=== PATIENT | male | born 1940 | race Caucasian/White ===

== ENCOUNTER 2023-04-10 08:21 | Outpatient (RCR) | payer OTHER, SELFPAY ==
[2023-04-10 08:50] VITALS: BP 150/72
[2023-04-10] MEDS: TYLENOL 650 MG PO (10:27)
[2023-04-10 10:38] VITALS: BP 150/72
[2023-04-10 10:55] VITALS: BP 122/63
[2023-04-10 12:36] VITALS: BP 125/62
== END 2023-05-03 23:59 | disposition home or self-care (01) ==
LOC: OID 08:21
PROVIDERS: ATTENDING PHYSICIAN Internal Medicine Hematology & Oncology
DX: D46.B Refractory cytopenia with multilineage dysplasia and ring sideroblasts (principal)
CPT/HCPCS: 36430; 86850; 86900; 86901; 86920; P9016

== ENCOUNTER 2023-05-22 11:41 | Outpatient (RCR) | payer OTHER, SELFPAY ==
[2023-05-22 12:05] VITALS: BP 161/68
[2023-05-22 12:22] VITALS: BP 110/63
[2023-05-22 12:27] VITALS: BP 161/68
[2023-05-22 14:26] VITALS: BP 124/59
== END 2023-06-01 23:59 | disposition home or self-care (01) ==
LOC: OID 11:41
PROVIDERS: ATTENDING PHYSICIAN Internal Medicine Hematology & Oncology
DX: D46.B Refractory cytopenia with multilineage dysplasia and ring sideroblasts (principal)
CPT/HCPCS: 36430; 86850; 86900; 86901; 86920; P9016

== ENCOUNTER → 2023-06-13 09:23 | Outpatient (REF) | payer OTHER, SELFPAY ==
[2023-06-13 09:28] LABS: % Basophils 1.2 % (0-2); % Eosinophils 4.6 % (0-6); % Immature Granulocytes 0.2 % (0-0.5); % Lymphocytes 16.2 % (20.5-51.1); % Monocytes 8.4 % (1.7-9.3); % Neutrophils 69.4 % (42.2-75.2); Absolute Basophils 0.1 10^3/uL (0-0.2); Absolute Eosinophils 0.2 10^3/uL (0-0.7); Absolute Lymphocytes 0.8 10^3/uL (1.2-3.4); Absolute Monocytes 0.4 10^3/uL (0.1-0.6); Absolute Neutrophils 3.5 10^3/uL (1.4-6.5); Hematocrit 25.7 % (39.0-52.0); Hemoglobin 8.6 g/dL (13.0-18.0); Mean Corp Hgb Conc. 33.5 g/dL (33.0-37.0); Mean Corpuscular Hgb 36.6 pg (27.0-31.0); Mean Corpuscular Volume 109.4 fL (80.0-94.0); Platelet Count 335 10^3/uL (130-400); Red Blood Cell Count 2.35 10^6/uL (4.70-6.10); Red Cell Dist. Width 23.3 % (11.5-14.5)
== END ==
LOC: OIDL 09:23
PROVIDERS: ATTENDING PHYSICIAN Internal Medicine Hematology & Oncology
DX: D46.B Refractory cytopenia with multilineage dysplasia and ring sideroblasts (principal)
CPT/HCPCS: 85025

== ENCOUNTER → 2023-07-04 09:05 | Outpatient (REF) | payer OTHER, SELFPAY ==
[2023-07-04 09:16] LABS: % Basophils 1.4 % (0-2); % Eosinophils 4.3 % (0-6); % Immature Granulocytes 0.2 % (0-0.5); % Lymphocytes 16.2 % (20.5-51.1); % Monocytes 9.7 % (1.7-9.3); % Neutrophils 68.2 % (42.2-75.2); Absolute Basophils 0.1 10^3/uL (0-0.2); Absolute Eosinophils 0.3 10^3/uL (0-0.7); Absolute Monocytes 0.6 10^3/uL (0.1-0.6); Hematocrit 27.8 % (39.0-52.0); Hemoglobin 9.4 g/dL (13.0-18.0); Mean Corp Hgb Conc. 33.8 g/dL (33.0-37.0); Mean Corpuscular Hgb 36.9 pg (27.0-31.0); Mean Platelet Volume 11.3 fL (7.4-10.4); Platelet Count 384 10^3/uL (130-400); Red Blood Cell Count 2.55 10^6/uL (4.70-6.10); Red Cell Dist. Width 24.4 % (11.5-14.5); White Blood Cell Count 5.9 10^3/uL (4.8-10.8)
== END ==
LOC: OIDL 09:05
PROVIDERS: ATTENDING PHYSICIAN Internal Medicine Hematology & Oncology
DX: D46.B Refractory cytopenia with multilineage dysplasia and ring sideroblasts (principal)
CPT/HCPCS: 36415; 85025

== ENCOUNTER → 2023-07-25 09:28 | Outpatient (REF) | payer OTHER, SELFPAY ==
[2023-07-25 09:43] LABS: % Basophils 1.1 % (0-2); % Eosinophils 3.2 % (0-6); % Immature Granulocytes 0.2 % (0-0.5); % Lymphocytes 13.9 % (20.5-51.1); % Monocytes 9.4 % (1.7-9.3); % Neutrophils 72.2 % (42.2-75.2); Absolute Basophils 0.1 10^3/uL (0-0.2); Absolute Eosinophils 0.2 10^3/uL (0-0.7); Absolute Lymphocytes 0.9 10^3/uL (1.2-3.4); Absolute Monocytes 0.6 10^3/uL (0.1-0.6); Absolute Neutrophils 4.8 10^3/uL (1.4-6.5); Hematocrit 26.2 % (39.0-52.0); Hemoglobin 8.9 g/dL (13.0-18.0); Mean Corpuscular Hgb 37.7 pg (27.0-31.0); Mean Platelet Volume 12.4 fL (7.4-10.4); Platelet Count 380 10^3/uL (130-400); Red Blood Cell Count 2.36 10^6/uL (4.70-6.10); Red Cell Dist. Width 24.8 % (11.5-14.5); White Blood Cell Count 6.6 10^3/uL (4.8-10.8)
== END ==
LOC: OIDL 09:28
PROVIDERS: ATTENDING PHYSICIAN Internal Medicine Hematology & Oncology; FAMILY PHYSICIAN Family Medicine
DX: D46.B Refractory cytopenia with multilineage dysplasia and ring sideroblasts (principal)
CPT/HCPCS: 36415; 85025

== ENCOUNTER → 2023-08-15 09:30 | Outpatient (REF) | payer OTHER, SELFPAY ==
[2023-08-15 09:38] LABS: % Basophils 1.1 % (0-2); % Eosinophils 2.7 % (0-6); % Immature Granulocytes 0.2 % (0-0.5); % Lymphocytes 10.5 % (20.5-51.1); % Monocytes 7.4 % (1.7-9.3); % Neutrophils 78.1 % (42.2-75.2); Absolute Basophils 0.1 10^3/uL (0-0.2); Absolute Eosinophils 0.2 10^3/uL (0-0.7); Absolute Lymphocytes 0.9 10^3/uL (1.2-3.4); Absolute Monocytes 0.6 10^3/uL (0.1-0.6); Absolute Neutrophils 6.5 10^3/uL (1.4-6.5); Hematocrit 26.1 % (39.0-52.0); Hemoglobin 8.8 g/dL (13.0-18.0); Mean Corp Hgb Conc. 33.7 g/dL (33.0-37.0); Mean Corpuscular Hgb 38.1 pg (27.0-31.0); Platelet Count 363 10^3/uL (130-400); Red Blood Cell Count 2.31 10^6/uL (4.70-6.10); Red Cell Dist. Width 25.9 % (11.5-14.5); White Blood Cell Count 8.4 10^3/uL (4.8-10.8)
== END ==
LOC: OIDL 09:30
PROVIDERS: ATTENDING PHYSICIAN Internal Medicine Hematology & Oncology; FAMILY PHYSICIAN Family Medicine
DX: D46.B Refractory cytopenia with multilineage dysplasia and ring sideroblasts (principal)
CPT/HCPCS: 36415; 85025

== ENCOUNTER → 2023-09-05 08:48 | Outpatient (REF) | payer OTHER, SELFPAY ==
[2023-09-05 09:23] LABS: % Basophils 1.1 % (0-2); % Eosinophils 1.9 % (0-6); % Immature Granulocytes 0.3 % (0-0.5); % Lymphocytes 11.1 % (20.5-51.1); % Monocytes 8.2 % (1.7-9.3); % Neutrophils 77.4 % (42.2-75.2); Absolute Basophils 0.1 10^3/uL (0-0.2); Absolute Eosinophils 0.2 10^3/uL (0-0.7); Absolute Monocytes 0.7 10^3/uL (0.1-0.6); Absolute Neutrophils 6.9 10^3/uL (1.4-6.5); Hematocrit 26.9 % (39.0-52.0); Hemoglobin 9.1 g/dL (13.0-18.0); Mean Corp Hgb Conc. 33.8 g/dL (33.0-37.0); Mean Corpuscular Hgb 38.2 pg (27.0-31.0); Mean Platelet Volume 12.1 fL (7.4-10.4); Platelet Count 385 10^3/uL (130-400); Red Blood Cell Count 2.38 10^6/uL (4.70-6.10); Red Cell Dist. Width 25.7 % (11.5-14.5); White Blood Cell Count 8.9 10^3/uL (4.8-10.8)
== END ==
LOC: OIDL 08:48
PROVIDERS: ATTENDING PHYSICIAN Internal Medicine Hematology & Oncology
DX: D46.B Refractory cytopenia with multilineage dysplasia and ring sideroblasts (principal)
CPT/HCPCS: 36415; 85025

== ENCOUNTER 2023-09-20 11:18 | Emergency (ER) | payer OTHER, SELFPAY ==
[2023-09-20 11:19] VITALS: BP 148/78
[2023-09-20 12:17] VITALS: BP 119/76
[2023-09-20 12:43] LABS: % Basophils 0.8 % (0-2); % Eosinophils 0.5 % (0-6); % Immature Granulocytes 0.3 % (0-0.5); % Lymphocytes 6.6 % (20.5-51.1); % Monocytes 7.5 % (1.7-9.3); % Neutrophils 84.3 % (42.2-75.2); Absolute Basophils 0.1 10^3/uL (0-0.2); Absolute Eosinophils 0.1 10^3/uL (0-0.7); Absolute Lymphocytes 0.6 10^3/uL (1.2-3.4); Absolute Monocytes 0.7 10^3/uL (0.1-0.6); Absolute Neutrophils 7.7 10^3/uL (1.4-6.5); Mean Corp Hgb Conc. 33.3 g/dL (33.0-37.0); Mean Corpuscular Hgb 37.7 pg (27.0-31.0); Mean Platelet Volume 12.8 fL (7.4-10.4); Platelet Count 354 10^3/uL (130-400); Red Blood Cell Count 2.39 10^6/uL (4.70-6.10); Red Cell Dist. Width 25.6 % (11.5-14.5); White Blood Cell Count 9.1 10^3/uL (4.8-10.8)
[2023-09-20] MEDS: NSS 250 IV (12:51)
[2023-09-20 12:53] VITALS: BP 127/67
[2023-09-20 12:55] LABS: ALT (SGPT) 20 U/L (0-50); AST (SGOT) 27 U/L (17-59); Albumin 4.5 g/dl (3.5-5.0); Alkaline Phosphatase 59 U/L (38-126); Blood Urea Nitrogen 20 mg/dl (9-20); Calcium 9.2 mg/dl (8.4-10.2); Carbon Dioxide 26 mmol/L (22-30); Chloride 104 mmol/L (98-107); Glucose 130 mg/dl (70-99); Magnesium 2.2 mg/dl (1.6-2.3); Potassium 5.6 mmol/L (3.5-5.1); Sodium 138 mmol/L (135-145); Total Protein 7.1 g/dl (6.3-8.2); eGFR > 60.00
[2023-09-20 13:00] VITALS: BP 126/78
[2023-09-20 13:05] LABS: Troponin I < 0.012 ng/ml
[2023-09-20 13:35] LABS: TSH 2.81 uIU/ml (0.47-4.68)
[2023-09-20 13:46] LABS: Anisocytosis 1+; Normal RBC Morphology No
[2023-09-20 13:47] LABS: Hypochromasia 1+; Ovalocytes 1+; Polychromasia 1+; Target Cells 1+
[2023-09-20 13:48] LABS: Acanthocytes FEW
[2023-09-20 14:00] VITALS: BP 118/62
--- NOTE | 2023-09-20 14:46 | ED.GENMED ---
History of Present Illness
General
Chief Complaint: Dizziness
Source: patient and spouse
Exam Limitations: none
Time Seen by Provider: 09/20/23 12:17
Nursing documentation reviewed up to this point in time: agreed with
Travel History
Have you had any contact with someone who has COVID-19?: No
Do you have any symptoms of coronavirus? Fever > 100 degrees, chills, cough, shortness of breath, sore throat, loss of taste or smell, muscle aches, or headache?: No
History of Present Illness
History of Present Illness:
83-year-old male with past medical history of anemia previous smoker presenting to the emergency department today with concerns of lightheadedness after walking the stairs earlier today also has had some intermittent chest tightness usually after
exertion for the past couple weeks but denies any currently or any throughout the day today. Denies any palpitations nausea vomiting or diaphoresis. Denies any cardiac history.
Past History
Past History
ED Past Medical History: HTN
ED Past Surgical History: Orthopedic
Social History
Tobacco: Non-smoker
Personal:
Review of Systems
Review of Systems
Allergies reviewed?: Yes
All Other Systems: ROS reviewed and negative except as documented in HPI and ROS
Phy Exam
Physical Exam
Physical Exam:
GENERAL: Alert , in no apparent distress
EYE: pupils equal and reactive
NECK: Supple, no significant adenopathy.
ENT: o/p clr, mmm.
CARDIAC: Regular rate and rhythm .
LUNGS: Clear breath sounds bilaterally, no acute respiratory distress, no wheezes/rales/rhonchi
ABDOMEN: Soft, without focal tenderness, no r/g, no cvat
NEUROLOGICAL: Alert and oriented, no focal neuro deficits
SKIN: Warm and dry, skin intact.
MUSCULOSKELETAL: No edema, well perfused.
PSYCH: Normal and appropriate interaction.
Course
Orders/Labs/Results
Orders:
Orders
09/20/23 11:22
Electrocardiogram (*1) Urgent
Reason for Study: Chest Pain
EKG- Treatment ONCE
09/20/23 12:18
Cardiac Monitoring- Treatment ONCE
0.9% Sodium Chloride 250 ml [Nss] 250 ml IV BOLUS
CR Chest - 2 Views Urgent
Comment:
Reason For Exam: cp
09/20/23 12:31
Complete Blood Count/With Diff Urgent
Comprehensive Metabolic Panel Urgent
Magnesium Urgent
TSH Urgent
Troponin I Urgent
Abnormal Lab Results
09/20/23
12:31
RBC 2.39 L 10^6/uL
(4.70-6.10)
Hgb 9.0 L g/dL
(13.0-18.0)
Hct 27.0 L %
(39.0-52.0)
MCV 113.0 H fL
(80.0-94.0)
MCH 37.7 H pg
(27.0-31.0)
RDW 25.6 H %
(11.5-14.5)
MPV 12.8 H fL
(7.4-10.4)
Absolute Neuts (auto) 7.7 H 10^3/uL
(1.4-6.5)
Absolute Lymphs (auto) 0.6 L 10^3/uL
(1.2-3.4)
Absolute Monos (auto) 0.7 H 10^3/uL
(0.1-0.6)
Neutrophils % 84.3 H %
(42.2-75.2)
Lymphocytes % 6.6 L %
(20.5-51.1)
Potassium 5.6 H mmol/L
(3.5-5.1)
Glucose 130 H mg/dl
(70-99)
09/20/23 12:31
09/20/23 12:31
Vital Signs
Initial and Last Documented VS:
Initial Vital Signs
Temp Pulse Resp BP Pulse Ox
97.7 F 82 18 148/78 99
09/20/23 11:19 09/20/23 11:19 09/20/23 11:19 09/20/23 11:19 09/20/23 11:19
Last Documented Vital Signs
Temp Pulse Resp BP Pulse Ox
97.7 F 63 19 118/62 95
09/20/23 11:19 09/20/23 14:00 09/20/23 14:00 09/20/23 14:00 09/20/23 14:00
MDM/Problems Addressed
MDM/Problems Addressed:
83-year-old male presenting to the emergency department today with concerns of episode of lightheadedness after walking up the stairs earlier today has had some intermittent chest pain but denies any today. Upon arrival vital signs normal patient
well-appearing no acute distress hemoglobin of 9 which is at patient's baseline otherwise labs unremarkable potassium slightly elevated 5.6. No acute EKG changes chest x-ray without acute abnormality. Patient without significant symptoms
throughout ER stay patient was advised for close outpatient follow-up with cardiology. Return precautions given.
*Critical Care Note
Total Time (30-74mins, 75-104mins- exclusive of procedures): Not Applicable
ED Attending Note
-
Portions of this chart may have been created with voice recognition software.� Occasional wrong word or��sound alike� substitutions may have occurred due to the inherent limitations of voice recognition software.
Discharge Plan
Departure
Patient Disposition: Home (Routine Discharge)
Date of Disposition: 09/20/23
Time of Disposition: 14:48
Patient with high blood pressure during this ER visit?: No
Condition: Good
Covid-19: Not Applicable
Discharge Problem:
Chest pain, Hyperkalemia
Instructions: Low-potassium diet, Chest Pain DCA Follow Up
Prescriptions:
No Action
lisinopril 5 mg Tablet
5 mg PO DAILY
Referrals:
Loki Carballo MD [Family Provider] -
Activity Restrictions/Additional Instructions:
You came to the emergency department today with concerns of lightheadedness and intermittent chest pain. Here had a reassuring assessment. Please follow closely with cardiology. Return to the emergency department for any worsening, new or
concerning symptoms.
Interventions
Interventions:
*Risk Screen - Suicide Last Done: 09/20/23 12:47
*General Assessment Last Done: 09/20/23 11:19
*Neglect/Abuse Screening Last Done: 09/20/23 12:47
ED- Fall Risk Assessment Last Done: 09/20/23 12:18
*ED COVID-19 Vaccine History Last Done: 09/20/23 11:19
ED- Neurological Assessment Last Done: 09/20/23 12:18
ED- Cardiac Assessment Last Done: 09/20/23 12:18
Discharge Date and Time
Print Language: DANISH
== END 2023-09-20 15:02 | disposition home or self-care (01) ==
LOC: EMR 11:18
PROVIDERS: Physician Assistant; EMERGENCY PHYSICIAN Emergency Medicine; FAMILY PHYSICIAN Family Medicine
DX: E87.5 Hyperkalemia (principal); R42 Dizziness and giddiness; R07.89 Other chest pain; I10 Essential (primary) hypertension; M19.90 Unspecified osteoarthritis, unspecified site; D64.9 Anemia, unspecified; Z85.828 Personal history of other malignant neoplasm of skin; Z87.891 Personal history of nicotine dependence
CPT/HCPCS: 99284; 96360; 71046; 80053; 83735; 84443; 84484; 85025; 93005

== ENCOUNTER → 2023-09-26 09:05 | Outpatient (REF) | payer OTHER, SELFPAY ==
[2023-09-26 09:44] LABS: % Eosinophils 1.1 % (0-6); % Immature Granulocytes 0.3 % (0-0.5); % Lymphocytes 14.2 % (20.5-51.1); % Monocytes 8.1 % (1.7-9.3); % Neutrophils 75.3 % (42.2-75.2); Absolute Basophils 0.1 10^3/uL (0-0.2); Absolute Eosinophils 0.1 10^3/uL (0-0.7); Absolute Lymphocytes 1.1 10^3/uL (1.2-3.4); Absolute Monocytes 0.6 10^3/uL (0.1-0.6); Hematocrit 28.1 % (39.0-52.0); Hemoglobin 9.7 g/dL (13.0-18.0); Mean Corp Hgb Conc. 34.5 g/dL (33.0-37.0); Mean Corpuscular Hgb 38.6 pg (27.0-31.0); Mean Platelet Volume 12.5 fL (7.4-10.4); Platelet Count 402 10^3/uL (130-400); Red Blood Cell Count 2.51 10^6/uL (4.70-6.10); Red Cell Dist. Width 25.1 % (11.5-14.5); White Blood Cell Count 7.9 10^3/uL (4.8-10.8)
== END ==
LOC: OIDL 09:05
PROVIDERS: ATTENDING PHYSICIAN Internal Medicine Hematology & Oncology
DX: D46.B Refractory cytopenia with multilineage dysplasia and ring sideroblasts (principal)
CPT/HCPCS: 36415; 85025

== ENCOUNTER → 2023-10-12 07:03 | Outpatient (REF) | payer OTHER, SELFPAY ==
[2023-10-12 08:10] LABS: Blood Urea Nitrogen 23 mg/dl (9-20); Calcium 9.3 mg/dl (8.4-10.2); Carbon Dioxide 26 mmol/L (22-30); Chloride 106 mmol/L (98-107); Glucose 93 mg/dl (70-99); Potassium 5.1 mmol/L (3.5-5.1); Sodium 140 mmol/L (135-145); eGFR > 60.00
== END ==
LOC: REG 07:03
PROVIDERS: ATTENDING PHYSICIAN Internal Medicine Cardiovascular Disease; FAMILY PHYSICIAN Family Medicine
DX: E87.5 Hyperkalemia (principal)
CPT/HCPCS: 36415; 80048

== ENCOUNTER → 2023-10-17 08:52 | Outpatient (REF) | payer OTHER, SELFPAY ==
[2023-10-17 09:23] LABS: % Basophils 1.4 % (0-2); % Eosinophils 2.4 % (0-6); % Immature Granulocytes 0.2 % (0-0.5); % Lymphocytes 14.6 % (20.5-51.1); % Monocytes 8.1 % (1.7-9.3); % Neutrophils 73.3 % (42.2-75.2); Absolute Basophils 0.1 10^3/uL (0-0.2); Absolute Eosinophils 0.2 10^3/uL (0-0.7); Absolute Monocytes 0.5 10^3/uL (0.1-0.6); Absolute Neutrophils 4.9 10^3/uL (1.4-6.5); Hematocrit 26.9 % (39.0-52.0); Hemoglobin 9.2 g/dL (13.0-18.0); Mean Corp Hgb Conc. 34.2 g/dL (33.0-37.0); Mean Corpuscular Hgb 38.7 pg (27.0-31.0); Mean Platelet Volume 12.2 fL (7.4-10.4); Platelet Count 397 10^3/uL (130-400); Red Blood Cell Count 2.38 10^6/uL (4.70-6.10); Red Cell Dist. Width 24.9 % (11.5-14.5); White Blood Cell Count 6.6 10^3/uL (4.8-10.8)
== END ==
LOC: OIDL 08:52
PROVIDERS: ATTENDING PHYSICIAN Internal Medicine Hematology & Oncology
DX: D46.B Refractory cytopenia with multilineage dysplasia and ring sideroblasts (principal)
CPT/HCPCS: 36415; 85025

== ENCOUNTER → 2023-11-06 10:57 | Outpatient (REF) | payer OTHER, SELFPAY | LOC: RCS 10:57 | PROVIDERS: ATTENDING PHYSICIAN Internal Medicine Cardiovascular Disease; FAMILY PHYSICIAN Family Medicine | DX: R06.02 Shortness of breath (principal) | CPT/HCPCS: 93306 ==

== ENCOUNTER → 2023-11-07 09:22 | Outpatient (REF) | payer OTHER, SELFPAY ==
[2023-11-07 09:35] LABS: % Basophils 1.6 % (0-2); % Eosinophils 3.3 % (0-6); % Immature Granulocytes 0.1 % (0-0.5); % Lymphocytes 13.9 % (20.5-51.1); % Monocytes 8.2 % (1.7-9.3); % Neutrophils 72.9 % (42.2-75.2); Absolute Basophils 0.1 10^3/uL (0-0.2); Absolute Eosinophils 0.2 10^3/uL (0-0.7); Absolute Monocytes 0.6 10^3/uL (0.1-0.6); Absolute Neutrophils 5.1 10^3/uL (1.4-6.5); Hematocrit 26.2 % (39.0-52.0); Hemoglobin 8.9 g/dL (13.0-18.0); Mean Corpuscular Hgb 38.5 pg (27.0-31.0); Mean Corpuscular Volume 113.4 fL (80.0-94.0); Mean Platelet Volume 11.8 fL (7.4-10.4); Platelet Count 361 10^3/uL (130-400); Red Blood Cell Count 2.31 10^6/uL (4.70-6.10); Red Cell Dist. Width 25.5 % (11.5-14.5)
== END ==
LOC: OIDL 09:22
PROVIDERS: ATTENDING PHYSICIAN Internal Medicine Hematology & Oncology; FAMILY PHYSICIAN Family Medicine
DX: D46.B Refractory cytopenia with multilineage dysplasia and ring sideroblasts (principal)
CPT/HCPCS: 36415; 85025

== ENCOUNTER → 2023-11-27 08:02 | Outpatient (REF) | payer OTHER, SELFPAY ==
[2023-11-27 09:49] LABS: % Basophils 1.2 % (0-2); % Eosinophils 3.3 % (0-6); % Immature Granulocytes 0.4 % (0-0.5); % Lymphocytes 15.6 % (20.5-51.1); % Monocytes 9.1 % (1.7-9.3); % Neutrophils 70.4 % (42.2-75.2); Absolute Basophils 0.1 10^3/uL (0-0.2); Absolute Eosinophils 0.2 10^3/uL (0-0.7); Absolute Lymphocytes 0.9 10^3/uL (1.2-3.4); Absolute Monocytes 0.5 10^3/uL (0.1-0.6); Hematocrit 25.1 % (39.0-52.0); Hemoglobin 8.5 g/dL (13.0-18.0); Mean Corp Hgb Conc. 33.9 g/dL (33.0-37.0); Mean Corpuscular Hgb 37.9 pg (27.0-31.0); Mean Corpuscular Volume 112.1 fL (80.0-94.0); Mean Platelet Volume 12.3 fL (7.4-10.4); Nucleated Red Blood Cells % 0.4 % (-); Platelet Count 384 10^3/uL (130-400); Red Blood Cell Count 2.24 10^6/uL (4.70-6.10); Red Cell Dist. Width 25.2 % (11.5-14.5); White Blood Cell Count 5.7 10^3/uL (4.8-10.8)
[2023-11-27 10:41] LABS: Anisocytosis Slight; Target Cells Slight
[2023-11-27 10:42] LABS: Normal RBC Morphology No
== END ==
LOC: REG 08:02
PROVIDERS: ATTENDING PHYSICIAN Internal Medicine Hematology & Oncology; FAMILY PHYSICIAN Family Medicine
DX: D46.B Refractory cytopenia with multilineage dysplasia and ring sideroblasts (principal)
CPT/HCPCS: 36415; 85025

== ENCOUNTER → 2023-12-19 08:55 | Outpatient (REF) | payer OTHER, SELFPAY ==
[2023-12-19 11:02] LABS: % Basophils 1.1 % (0-2); % Eosinophils 2.5 % (0-6); % Immature Granulocytes 0.4 % (0-0.5); % Lymphocytes 11.9 % (20.5-51.1); % Monocytes 8.2 % (1.7-9.3); % Neutrophils 75.7 % (42.2-75.2); Absolute Basophils 0.1 10^3/uL (0-0.2); Absolute Eosinophils 0.2 10^3/uL (0-0.7); Absolute Lymphocytes 0.7 10^3/uL (1.2-3.4); Absolute Monocytes 0.5 10^3/uL (0.1-0.6); Absolute Neutrophils 4.3 10^3/uL (1.4-6.5); Hemoglobin 8.6 g/dL (13.0-18.0); Mean Corp Hgb Conc. 33.3 g/dL (33.0-37.0); Mean Platelet Volume 12.3 fL (7.4-10.4); Nucleated Red Blood Cells % 1.4 % (-); Platelet Count 338 10^3/uL (130-400); Red Blood Cell Count 2.27 10^6/uL (4.70-6.10); Red Cell Dist. Width 26.2 % (11.5-14.5); White Blood Cell Count 5.6 10^3/uL (4.8-10.8)
== END ==
LOC: OIDL 08:55
PROVIDERS: ATTENDING PHYSICIAN Internal Medicine Hematology & Oncology; FAMILY PHYSICIAN Family Medicine
DX: D46.B Refractory cytopenia with multilineage dysplasia and ring sideroblasts (principal)
CPT/HCPCS: 36415; 85025

== ENCOUNTER → 2024-01-09 08:28 | Outpatient (REF) | payer OTHER, SELFPAY ==
[2024-01-09 08:47] LABS: % Basophils 1.4 % (0-2); % Eosinophils 3.3 % (0-6); % Immature Granulocytes 0.3 % (0-0.5); % Lymphocytes 13.4 % (20.5-51.1); % Monocytes 9.7 % (1.7-9.3); % Neutrophils 71.9 % (42.2-75.2); Absolute Basophils 0.1 10^3/uL (0-0.2); Absolute Eosinophils 0.2 10^3/uL (0-0.7); Absolute Lymphocytes 0.9 10^3/uL (1.2-3.4); Absolute Monocytes 0.6 10^3/uL (0.1-0.6); Absolute Neutrophils 4.5 10^3/uL (1.4-6.5); Hematocrit 26.1 % (39.0-52.0); Hemoglobin 8.7 g/dL (13.0-18.0); Mean Corp Hgb Conc. 33.3 g/dL (33.0-37.0); Mean Corpuscular Hgb 38.3 pg (27.0-31.0); Mean Platelet Volume 11.8 fL (7.4-10.4); Platelet Count 370 10^3/uL (130-400); Red Blood Cell Count 2.27 10^6/uL (4.70-6.10); Red Cell Dist. Width 25.9 % (11.5-14.5); White Blood Cell Count 6.3 10^3/uL (4.8-10.8)
== END ==
LOC: OIDL 08:28
PROVIDERS: ATTENDING PHYSICIAN Internal Medicine Hematology & Oncology; PRIMARYCARE PHYSICIAN Family Medicine
DX: D46.B Refractory cytopenia with multilineage dysplasia and ring sideroblasts (principal)
CPT/HCPCS: 36415; 85025

== ENCOUNTER → 2024-01-30 08:40 | Outpatient (REF) | payer OTHER, SELFPAY ==
[2024-01-30 09:02] LABS: % Basophils 1.3 % (0-2); % Eosinophils 1.6 % (0-6); % Immature Granulocytes 0.2 % (0-0.5); % Lymphocytes 8.1 % (20.5-51.1); % Monocytes 6.8 % (1.7-9.3); Absolute Basophils 0.1 10^3/uL (0-0.2); Absolute Eosinophils 0.2 10^3/uL (0-0.7); Absolute Lymphocytes 0.8 10^3/uL (1.2-3.4); Absolute Monocytes 0.6 10^3/uL (0.1-0.6); Absolute Neutrophils 7.6 10^3/uL (1.4-6.5); Hematocrit 27.3 % (39.0-52.0); Hemoglobin 8.9 g/dL (13.0-18.0); Mean Corp Hgb Conc. 32.6 g/dL (33.0-37.0); Mean Corpuscular Hgb 37.6 pg (27.0-31.0); Mean Corpuscular Volume 115.2 fL (80.0-94.0); Mean Platelet Volume 11.4 fL (7.4-10.4); Platelet Count 371 10^3/uL (130-400); Red Blood Cell Count 2.37 10^6/uL (4.70-6.10); Red Cell Dist. Width 26.9 % (11.5-14.5); White Blood Cell Count 9.2 10^3/uL (4.8-10.8)
== END ==
LOC: OIDL 08:40
PROVIDERS: ATTENDING PHYSICIAN Internal Medicine Hematology & Oncology; FAMILY PHYSICIAN Family Medicine
DX: D46.B Refractory cytopenia with multilineage dysplasia and ring sideroblasts (principal)
CPT/HCPCS: 36415; 85025

== ENCOUNTER → 2024-02-14 07:02 | Outpatient (REF) | payer OTHER, SELFPAY | LOC: DHCBC/DCA 07:02 | PROVIDERS: ATTENDING PHYSICIAN Internal Medicine Cardiovascular Disease; FAMILY PHYSICIAN Family Medicine | DX: R06.02 Shortness of breath (principal) | CPT/HCPCS: 78452; 93017; A9500; J2785 ==

== ENCOUNTER → 2024-02-20 09:05 | Outpatient (REF) | payer OTHER, SELFPAY ==
[2024-02-20 09:32] LABS: % Basophils 1.2 % (0-2); % Eosinophils 2.5 % (0-6); % Immature Granulocytes 0.1 % (0-0.5); % Lymphocytes 10.6 % (20.5-51.1); % Monocytes 7.3 % (1.7-9.3); % Neutrophils 78.3 % (42.2-75.2); Absolute Basophils 0.1 10^3/uL (0-0.2); Absolute Eosinophils 0.2 10^3/uL (0-0.7); Absolute Lymphocytes 0.8 10^3/uL (1.2-3.4); Absolute Monocytes 0.6 10^3/uL (0.1-0.6); Absolute Neutrophils 5.9 10^3/uL (1.4-6.5); Hematocrit 25.5 % (39.0-52.0); Hemoglobin 8.6 g/dL (13.0-18.0); Mean Corp Hgb Conc. 33.7 g/dL (33.0-37.0); Mean Corpuscular Hgb 37.4 pg (27.0-31.0); Mean Corpuscular Volume 110.9 fL (80.0-94.0); Mean Platelet Volume 12.2 fL (7.4-10.4); Platelet Count 357 10^3/uL (130-400); Red Cell Dist. Width 26.2 % (11.5-14.5); White Blood Cell Count 7.5 10^3/uL (4.8-10.8)
== END ==
LOC: OIDL 09:05
PROVIDERS: ATTENDING PHYSICIAN Internal Medicine Hematology & Oncology; FAMILY PHYSICIAN Family Medicine
DX: D46.B Refractory cytopenia with multilineage dysplasia and ring sideroblasts (principal)
CPT/HCPCS: 36415; 85025

== ENCOUNTER → 2024-03-12 09:12 | Outpatient (REF) | payer OTHER, SELFPAY ==
[2024-03-12 09:41] LABS: % Basophils 1.5 % (0-2); % Eosinophils 1.7 % (0-6); % Immature Granulocytes 0.1 % (0-0.5); % Monocytes 8.5 % (1.7-9.3); % Neutrophils 76.2 % (42.2-75.2); Absolute Basophils 0.1 10^3/uL (0-0.2); Absolute Eosinophils 0.1 10^3/uL (0-0.7); Absolute Lymphocytes 0.9 10^3/uL (1.2-3.4); Absolute Monocytes 0.6 10^3/uL (0.1-0.6); Absolute Neutrophils 5.7 10^3/uL (1.4-6.5); Hemoglobin 8.9 g/dL (13.0-18.0); Mean Corp Hgb Conc. 34.2 g/dL (33.0-37.0); Mean Corpuscular Hgb 37.9 pg (27.0-31.0); Mean Corpuscular Volume 110.6 fL (80.0-94.0); Mean Platelet Volume 12.2 fL (7.4-10.4); Platelet Count 423 10^3/uL (130-400); Red Blood Cell Count 2.35 10^6/uL (4.70-6.10); Red Cell Dist. Width 26.5 % (11.5-14.5); White Blood Cell Count 7.5 10^3/uL (4.8-10.8)
== END ==
LOC: OIDL 09:12
PROVIDERS: ATTENDING PHYSICIAN Internal Medicine Hematology & Oncology; FAMILY PHYSICIAN Family Medicine
DX: D46.B Refractory cytopenia with multilineage dysplasia and ring sideroblasts (principal)
CPT/HCPCS: 36415; 85025

== ENCOUNTER → 2024-04-02 09:13 | Outpatient (REF) | payer OTHER, SELFPAY ==
[2024-04-02 09:25] LABS: % Eosinophils 2.1 % (0-6); % Immature Granulocytes 0.1 % (0-0.5); % Lymphocytes 12.5 % (20.5-51.1); % Monocytes 8.3 % (1.7-9.3); Absolute Basophils 0.1 10^3/uL (0-0.2); Absolute Eosinophils 0.2 10^3/uL (0-0.7); Absolute Lymphocytes 1.1 10^3/uL (1.2-3.4); Absolute Monocytes 0.7 10^3/uL (0.1-0.6); Absolute Neutrophils 6.6 10^3/uL (1.4-6.5); Hematocrit 24.8 % (39.0-52.0); Hemoglobin 8.4 g/dL (13.0-18.0); Mean Corp Hgb Conc. 33.9 g/dL (33.0-37.0); Mean Corpuscular Hgb 37.8 pg (27.0-31.0); Mean Corpuscular Volume 111.7 fL (80.0-94.0); Mean Platelet Volume 12.3 fL (7.4-10.4); Platelet Count 391 10^3/uL (130-400); Red Blood Cell Count 2.22 10^6/uL (4.70-6.10); Red Cell Dist. Width 26.5 % (11.5-14.5); White Blood Cell Count 8.7 10^3/uL (4.8-10.8)
== END ==
LOC: OIDL 09:13
PROVIDERS: ATTENDING PHYSICIAN Internal Medicine Hematology & Oncology; FAMILY PHYSICIAN Family Medicine
DX: D46.B Refractory cytopenia with multilineage dysplasia and ring sideroblasts (principal)
CPT/HCPCS: 36415; 85025

== ENCOUNTER → 2024-04-23 09:18 | Outpatient (REF) | payer OTHER, SELFPAY ==
[2024-04-23 09:36] LABS: % Basophils 1.2 % (0-2); % Eosinophils 1.5 % (0-6); % Immature Granulocytes 0.2 % (0-0.5); % Lymphocytes 11.1 % (20.5-51.1); % Monocytes 10.4 % (1.7-9.3); % Neutrophils 75.6 % (42.2-75.2); Absolute Basophils 0.1 10^3/uL (0-0.2); Absolute Eosinophils 0.1 10^3/uL (0-0.7); Absolute Lymphocytes 0.7 10^3/uL (1.2-3.4); Absolute Monocytes 0.6 10^3/uL (0.1-0.6); Absolute Neutrophils 4.6 10^3/uL (1.4-6.5); Hematocrit 25.1 % (39.0-52.0); Hemoglobin 8.4 g/dL (13.0-18.0); Mean Corp Hgb Conc. 33.5 g/dL (33.0-37.0); Mean Corpuscular Hgb 38.2 pg (27.0-31.0); Mean Corpuscular Volume 114.1 fL (80.0-94.0); Mean Platelet Volume 11.5 fL (7.4-10.4); Platelet Count 346 10^3/uL (130-400); Red Cell Dist. Width 27.1 % (11.5-14.5); White Blood Cell Count 6.1 10^3/uL (4.8-10.8)
== END ==
LOC: OIDL 09:18
PROVIDERS: ATTENDING PHYSICIAN Internal Medicine Hematology & Oncology; FAMILY PHYSICIAN Family Medicine
DX: D46.B Refractory cytopenia with multilineage dysplasia and ring sideroblasts (principal)
CPT/HCPCS: 36415; 85025

== ENCOUNTER → 2024-05-14 09:15 | Outpatient (REF) | payer OTHER, SELFPAY ==
[2024-05-14 09:32] LABS: % Basophils 1.3 % (0-2); % Eosinophils 3.3 % (0-6); % Immature Granulocytes 0.3 % (0-0.5); % Lymphocytes 13.2 % (20.5-51.1); % Monocytes 8.4 % (1.7-9.3); % Neutrophils 73.5 % (42.2-75.2); Absolute Basophils 0.1 10^3/uL (0-0.2); Absolute Eosinophils 0.2 10^3/uL (0-0.7); Absolute Lymphocytes 0.9 10^3/uL (1.2-3.4); Absolute Monocytes 0.6 10^3/uL (0.1-0.6); Absolute Neutrophils 4.9 10^3/uL (1.4-6.5); Hematocrit 25.6 % (39.0-52.0); Hemoglobin 8.5 g/dL (13.0-18.0); Mean Corp Hgb Conc. 33.2 g/dL (33.0-37.0); Mean Corpuscular Hgb 38.6 pg (27.0-31.0); Mean Corpuscular Volume 116.4 fL (80.0-94.0); Mean Platelet Volume 11.6 fL (7.4-10.4); Platelet Count 374 10^3/uL (130-400); Red Cell Dist. Width 27.2 % (11.5-14.5); White Blood Cell Count 6.7 10^3/uL (4.8-10.8)
== END ==
LOC: OIDL 09:15
PROVIDERS: ATTENDING PHYSICIAN Internal Medicine Hematology & Oncology; FAMILY PHYSICIAN Family Medicine
DX: D46.B Refractory cytopenia with multilineage dysplasia and ring sideroblasts (principal)
CPT/HCPCS: 36415; 85025

== ENCOUNTER → 2024-06-04 08:47 | Outpatient (REF) | payer OTHER, SELFPAY ==
[2024-06-04 09:07] LABS: % Basophils 1.7 % (0-2); % Monocytes 7.7 % (1.7-9.3); % Neutrophils 73.6 % (42.2-75.2); Absolute Basophils 0.1 10^3/uL (0-0.2); Absolute Eosinophils 0.2 10^3/uL (0-0.7); Absolute Lymphocytes 0.8 10^3/uL (1.2-3.4); Absolute Monocytes 0.4 10^3/uL (0.1-0.6); Absolute Neutrophils 4.2 10^3/uL (1.4-6.5); Hematocrit 26.1 % (39.0-52.0); Hemoglobin 8.8 g/dL (13.0-18.0); Mean Corp Hgb Conc. 33.7 g/dL (33.0-37.0); Mean Corpuscular Hgb 38.8 pg (27.0-31.0); Mean Platelet Volume 12.6 fL (7.4-10.4); Platelet Count 374 10^3/uL (130-400); Red Blood Cell Count 2.27 10^6/uL (4.70-6.10); Red Cell Dist. Width 26.4 % (11.5-14.5); White Blood Cell Count 5.7 10^3/uL (4.8-10.8)
== END ==
LOC: OIDL 08:47
PROVIDERS: ATTENDING PHYSICIAN Internal Medicine Hematology & Oncology; FAMILY PHYSICIAN Family Medicine
DX: D46.B Refractory cytopenia with multilineage dysplasia and ring sideroblasts (principal)
CPT/HCPCS: 36415; 85025

== ENCOUNTER → 2024-06-25 08:43 | Outpatient (REF) | payer OTHER, SELFPAY ==
[2024-06-25 09:23] LABS: % Basophils 1.6 % (0-2); % Eosinophils 2.9 % (0-6); % Immature Granulocytes 0.4 % (0-0.5); % Lymphocytes 16.8 % (20.5-51.1); % Monocytes 10.6 % (1.7-9.3); % Neutrophils 67.7 % (42.2-75.2); Absolute Basophils 0.1 10^3/uL (0-0.2); Absolute Eosinophils 0.2 10^3/uL (0-0.7); Absolute Lymphocytes 0.9 10^3/uL (1.2-3.4); Absolute Monocytes 0.6 10^3/uL (0.1-0.6); Absolute Neutrophils 3.7 10^3/uL (1.4-6.5); Hematocrit 26.3 % (39.0-52.0); Hemoglobin 8.9 g/dL (13.0-18.0); Mean Corp Hgb Conc. 33.8 g/dL (33.0-37.0); Mean Corpuscular Hgb 38.5 pg (27.0-31.0); Mean Corpuscular Volume 113.9 fL (80.0-94.0); Mean Platelet Volume 12.5 fL (7.4-10.4); Platelet Count 351 10^3/uL (130-400); Red Blood Cell Count 2.31 10^6/uL (4.70-6.10); Red Cell Dist. Width 26.3 % (11.5-14.5); White Blood Cell Count 5.5 10^3/uL (4.8-10.8)
== END ==
LOC: OIDL 08:43
PROVIDERS: ATTENDING PHYSICIAN Internal Medicine Hematology & Oncology; FAMILY PHYSICIAN Family Medicine
DX: D46.B Refractory cytopenia with multilineage dysplasia and ring sideroblasts (principal)
CPT/HCPCS: 36415; 85025

== ENCOUNTER → 2024-07-16 08:47 | Outpatient (REF) | payer OTHER, SELFPAY ==
[2024-07-16 09:04] LABS: % Basophils 1.7 % (0-2); % Eosinophils 2.6 % (0-6); % Immature Granulocytes 0.2 % (0-0.5); % Lymphocytes 14.1 % (20.5-51.1); % Monocytes 9.8 % (1.7-9.3); % Neutrophils 71.6 % (42.2-75.2); Absolute Basophils 0.1 10^3/uL (0-0.2); Absolute Eosinophils 0.1 10^3/uL (0-0.7); Absolute Lymphocytes 0.8 10^3/uL (1.2-3.4); Absolute Monocytes 0.5 10^3/uL (0.1-0.6); Absolute Neutrophils 3.8 10^3/uL (1.4-6.5); Hematocrit 25.3 % (39.0-52.0); Hemoglobin 8.7 g/dL (13.0-18.0); Mean Corp Hgb Conc. 34.4 g/dL (33.0-37.0); Mean Corpuscular Hgb 38.8 pg (27.0-31.0); Mean Corpuscular Volume 112.9 fL (80.0-94.0); Mean Platelet Volume 12.7 fL (7.4-10.4); Platelet Count 376 10^3/uL (130-400); Red Blood Cell Count 2.24 10^6/uL (4.70-6.10); Red Cell Dist. Width 26.4 % (11.5-14.5); White Blood Cell Count 5.3 10^3/uL (4.8-10.8)
== END ==
LOC: OIDL 08:47
PROVIDERS: ATTENDING PHYSICIAN Registered Nurse
DX: D46.B Refractory cytopenia with multilineage dysplasia and ring sideroblasts (principal)
CPT/HCPCS: 36415; 85025

== ENCOUNTER → 2024-08-05 12:00 | Outpatient (REF) | payer OTHER, SELFPAY ==
[2024-08-05 14:34] LABS: % Basophils 0.8 % (0-2); % Eosinophils 2.7 % (0-6); % Immature Granulocytes 0.3 % (0-0.5); % Neutrophils 71.2 % (42.2-75.2); Absolute Basophils 0.1 10^3/uL (0-0.2); Absolute Eosinophils 0.2 10^3/uL (0-0.7); Absolute Monocytes 0.5 10^3/uL (0.1-0.6); Absolute Neutrophils 4.3 10^3/uL (1.4-6.5); Hematocrit 26.4 % (39.0-52.0); Hemoglobin 8.7 g/dL (13.0-18.0); Mean Corpuscular Hgb 38.2 pg (27.0-31.0); Mean Corpuscular Volume 115.8 fL (80.0-94.0); Mean Platelet Volume 12.9 fL (7.4-10.4); Nucleated Red Blood Cells % 0.7 % (-); Platelet Count 318 10^3/uL (130-400); Red Blood Cell Count 2.28 10^6/uL (4.70-6.10); Red Cell Dist. Width 26.5 % (11.5-14.5)
== END ==
LOC: OIDL 12:00
PROVIDERS: ATTENDING PHYSICIAN Internal Medicine Hematology & Oncology; FAMILY PHYSICIAN Family Medicine
DX: D46.B Refractory cytopenia with multilineage dysplasia and ring sideroblasts (principal)
CPT/HCPCS: 36415; 85025

== ENCOUNTER → 2024-08-27 08:48 | Outpatient (REF) | payer OTHER, SELFPAY ==
[2024-08-27 09:53] LABS: % Basophils 1.5 % (0-2); % Eosinophils 3.3 % (0-6); % Immature Granulocytes 0.1 % (0-0.5); % Lymphocytes 12.9 % (20.5-51.1); % Monocytes 9.2 % (1.7-9.3); Absolute Basophils 0.1 10^3/uL (0-0.2); Absolute Eosinophils 0.2 10^3/uL (0-0.7); Absolute Lymphocytes 0.9 10^3/uL (1.2-3.4); Absolute Monocytes 0.6 10^3/uL (0.1-0.6); Absolute Neutrophils 4.9 10^3/uL (1.4-6.5); Hematocrit 25.5 % (39.0-52.0); Hemoglobin 8.8 g/dL (13.0-18.0); Mean Corp Hgb Conc. 34.5 g/dL (33.0-37.0); Mean Corpuscular Hgb 39.3 pg (27.0-31.0); Mean Corpuscular Volume 113.8 fL (80.0-94.0); Mean Platelet Volume 12.5 fL (7.4-10.4); Platelet Count 331 10^3/uL (130-400); Red Blood Cell Count 2.24 10^6/uL (4.70-6.10); White Blood Cell Count 6.8 10^3/uL (4.8-10.8)
== END ==
LOC: OIDL 08:48
PROVIDERS: Internal Medicine Hematology & Oncology; ATTENDING PHYSICIAN Registered Nurse; FAMILY PHYSICIAN Family Medicine
DX: D46.B Refractory cytopenia with multilineage dysplasia and ring sideroblasts (principal)
CPT/HCPCS: 36415; 85025

== ENCOUNTER → 2024-09-17 08:39 | Outpatient (REF) | payer OTHER, SELFPAY ==
[2024-09-17 09:04] LABS: % Basophils 1.1 % (0-2); % Eosinophils 2.8 % (0-6); % Immature Granulocytes 0.4 % (0-0.5); % Monocytes 7.8 % (1.7-9.3); % Neutrophils 73.9 % (42.2-75.2); Absolute Basophils 0.1 10^3/uL (0-0.2); Absolute Eosinophils 0.2 10^3/uL (0-0.7); Absolute Lymphocytes 0.8 10^3/uL (1.2-3.4); Absolute Monocytes 0.4 10^3/uL (0.1-0.6); Hemoglobin 8.5 g/dL (13.0-18.0); Mean Corpuscular Hgb 38.6 pg (27.0-31.0); Mean Corpuscular Volume 113.6 fL (80.0-94.0); Mean Platelet Volume 11.8 fL (7.4-10.4); Platelet Count 321 10^3/uL (130-400); White Blood Cell Count 5.4 10^3/uL (4.8-10.8)
== END ==
LOC: OIDL 08:39
PROVIDERS: Internal Medicine Hematology & Oncology; ATTENDING PHYSICIAN Registered Nurse; FAMILY PHYSICIAN Family Medicine
DX: D46.B Refractory cytopenia with multilineage dysplasia and ring sideroblasts (principal)
CPT/HCPCS: 36415; 85025

== ENCOUNTER → 2024-10-08 08:46 | Outpatient (REF) | payer OTHER, SELFPAY ==
[2024-10-08 09:06] LABS: Hematocrit 24.2 % (39.0-52.0); Hemoglobin 8.3 g/dL (13.0-18.0); Mean Corp Hgb Conc. 34.3 g/dL (33.0-37.0); Mean Corpuscular Volume 113.6 fL (80.0-94.0); Platelet Count 314 10^3/uL (130-400); Red Cell Dist. Width 27.3 % (11.5-14.5)
== END ==
LOC: OIDL 08:46
PROVIDERS: Internal Medicine Hematology & Oncology; ATTENDING PHYSICIAN Registered Nurse; FAMILY PHYSICIAN Family Medicine
DX: D46.B Refractory cytopenia with multilineage dysplasia and ring sideroblasts (principal)
CPT/HCPCS: 36415; 85025

== ENCOUNTER → 2024-10-29 08:36 | Outpatient (REF) | payer OTHER, SELFPAY ==
[2024-10-29 08:52] LABS: Hematocrit 23.9 % (39.0-52.0); Hemoglobin 8.0 g/dL (13.0-18.0); Mean Corp Hgb Conc. 33.5 g/dL (33.0-37.0); Mean Corpuscular Volume 116.0 fL (80.0-94.0); Platelet Count 331 10^3/uL (130-400); Red Cell Dist. Width 26.2 % (11.5-14.5)
== END ==
LOC: OIDL 08:36
PROVIDERS: Internal Medicine Hematology & Oncology; ATTENDING PHYSICIAN Registered Nurse; FAMILY PHYSICIAN Family Medicine
DX: D46.B Refractory cytopenia with multilineage dysplasia and ring sideroblasts (principal)
CPT/HCPCS: 36415; 85025

== ENCOUNTER → 2024-11-19 08:38 | Outpatient (REF) | payer OTHER, SELFPAY ==
[2024-11-19 08:57] LABS: Hematocrit 25.3 % (39.0-52.0); Hemoglobin 8.5 g/dL (13.0-18.0); Mean Corp Hgb Conc. 33.6 g/dL (33.0-37.0); Mean Corpuscular Volume 117.1 fL (80.0-94.0); Platelet Count 329 10^3/uL (130-400); Red Cell Dist. Width 27.5 % (11.5-14.5)
[2024-11-19 11:44] LABS: Reticulocyte Count 1.6 % (0.4-2.8)
[2024-11-19 12:05] LABS: Iron 194 ug/dl (49-181); LDH 198 U/L (120-246)
[2024-11-19 12:15] LABS: Total Iron Binding Capacity 225 ug/dl (261-462)
[2024-11-19 12:39] LABS: Ferritin 401.0 ng/ml (17.9-464.0)
[2024-11-19 13:11] LABS: Folate 10.7 ng/ml (2.76-20); Vitamin B12 527 pg/ml (239-931)
== END ==
LOC: OIDL 08:38
PROVIDERS: Internal Medicine Hematology & Oncology; ATTENDING PHYSICIAN Registered Nurse; FAMILY PHYSICIAN Family Medicine
DX: D46.B Refractory cytopenia with multilineage dysplasia and ring sideroblasts (principal)
CPT/HCPCS: 36415; 82607; 82728; 82746; 83010; 83540; 83550; 83615; 85025; 85045; 85652; 86880

== ENCOUNTER 2024-11-29 09:49 | Outpatient (RCR) | payer OTHER, SELFPAY | END 2024-11-29 23:59 | disposition home or self-care (01) | LOC: RPT 09:49 | PROVIDERS: ATTENDING PHYSICIAN Nurse Practitioner Adult Health; FAMILY PHYSICIAN Family Medicine | DX: R53.1 Weakness (principal); M79.605 Pain in left leg; R26.89 Other abnormalities of gait and mobility; D46.B Refractory cytopenia with multilineage dysplasia and ring sideroblasts | CPT/HCPCS: 97110; 97112; 97162 ==

== ENCOUNTER → 2024-12-10 08:43 | Outpatient (REF) | payer OTHER, SELFPAY ==
[2024-12-10 09:59] LABS: Hematocrit 27.2 % (39.0-52.0)
[2024-12-10 11:17] LABS: Hemoglobin 8.8 g/dL (13.0-18.0); Mean Corp Hgb Conc. 32.4 g/dL (33.0-37.0); Mean Corpuscular Volume 115.7 fL (80.0-94.0); Nucleated Red Blood Cells % 0.7 % (-); Red Cell Dist. Width 28.0 % (11.5-14.5)
== END ==
LOC: OIDL 08:43
PROVIDERS: ATTENDING PHYSICIAN Internal Medicine Hematology & Oncology; FAMILY PHYSICIAN Family Medicine
DX: D46.B Refractory cytopenia with multilineage dysplasia and ring sideroblasts (principal)
CPT/HCPCS: 36415; 85025

== ENCOUNTER 2024-12-16 09:47 | Outpatient (RCR) | payer OTHER, SELFPAY | END 2024-12-19 12:02 | disposition home or self-care (01) | LOC: RPT 09:47 | PROVIDERS: ATTENDING PHYSICIAN Nurse Practitioner Adult Health; FAMILY PHYSICIAN Family Medicine | DX: R53.1 Weakness (principal); M79.605 Pain in left leg; R26.89 Other abnormalities of gait and mobility; D46.B Refractory cytopenia with multilineage dysplasia and ring sideroblasts | CPT/HCPCS: 97110 ==

== ENCOUNTER → 2024-12-31 09:39 | Outpatient (REF) | payer OTHER, SELFPAY ==
[2024-12-31 09:50] LABS: Hematocrit 26.2 % (39.0-52.0); Hemoglobin 8.8 g/dL (13.0-18.0); Mean Corp Hgb Conc. 33.6 g/dL (33.0-37.0); Mean Corpuscular Volume 112.9 fL (80.0-94.0); Platelet Count 343 10^3/uL (130-400); Red Cell Dist. Width 27.4 % (11.5-14.5)
== END ==
LOC: OIDL 09:39
PROVIDERS: ATTENDING PHYSICIAN Internal Medicine Hematology & Oncology; FAMILY PHYSICIAN Family Medicine
DX: D46.B Refractory cytopenia with multilineage dysplasia and ring sideroblasts (principal)
CPT/HCPCS: 36415; 85025

== ENCOUNTER → 2025-01-21 09:10 | Outpatient (REF) | payer OTHER, SELFPAY ==
[2025-01-21 09:44] LABS: Hematocrit 24.1 % (39.0-52.0); Hemoglobin 8.0 g/dL (13.0-18.0); Mean Corp Hgb Conc. 33.2 g/dL (33.0-37.0); Mean Corpuscular Volume 111.6 fL (80.0-94.0); Nucleated Red Blood Cells % 0.4 % (-); Platelet Count 320 10^3/uL (130-400); Red Cell Dist. Width 27.7 % (11.5-14.5)
== END ==
LOC: OIDL 09:10
PROVIDERS: ATTENDING PHYSICIAN Internal Medicine Hematology & Oncology; FAMILY PHYSICIAN Family Medicine
DX: D46.B Refractory cytopenia with multilineage dysplasia and ring sideroblasts (principal)
CPT/HCPCS: 36415; 85025

== ENCOUNTER → 2025-02-11 10:04 | Outpatient (REF) | payer OTHER, SELFPAY ==
[2025-02-11 11:22] LABS: Hematocrit 23.6 % (39.0-52.0); Hemoglobin 7.8 g/dL (13.0-18.0); Mean Corp Hgb Conc. 33.1 g/dL (33.0-37.0); Mean Corpuscular Volume 113.5 fL (80.0-94.0); Nucleated Red Blood Cells % 0.7 % (-); Platelet Count 358 10^3/uL (130-400); Red Cell Dist. Width 28.0 % (11.5-14.5)
[2025-02-11 14:08] LABS: Anisocytosis 2+; Hypochromasia 2+; Normal RBC Morphology No; Poikilocytosis 2+; Polychromasia 1+
[2025-02-11 14:09] LABS: Ovalocytes 1+; Stomatocytes 1+; Tear Drop Red Blood Cells 1+
[2025-02-11 14:11] LABS: Macrocytosis 2+; Microcytosis 1+
[2025-02-11 14:12] LABS: Acanthocytes 1+; Schistocytes Occasional; Target Cells 1+
[2025-02-11 14:13] LABS: Basophilic Stippling 1+
== END ==
LOC: OIDL 10:04
PROVIDERS: ATTENDING PHYSICIAN Internal Medicine Hematology & Oncology; FAMILY PHYSICIAN Family Medicine
DX: D46.B Refractory cytopenia with multilineage dysplasia and ring sideroblasts (principal)
CPT/HCPCS: 36415; 85025

== ENCOUNTER → 2025-03-04 09:00 | Outpatient (REF) | payer OTHER, SELFPAY ==
[2025-03-04 09:57] LABS: Hematocrit 23.8 % (39.0-52.0); Hemoglobin 7.8 g/dL (13.0-18.0); Mean Corp Hgb Conc. 32.8 g/dL (33.0-37.0); Mean Corpuscular Volume 114.4 fL (80.0-94.0); Nucleated Red Blood Cells % 1.0 % (-); Platelet Count 304 10^3/uL (130-400); Red Cell Dist. Width 28.6 % (11.5-14.5)
== END ==
LOC: OIDL 09:00
PROVIDERS: ATTENDING PHYSICIAN Internal Medicine Hematology & Oncology; FAMILY PHYSICIAN Family Medicine
DX: D46.B Refractory cytopenia with multilineage dysplasia and ring sideroblasts (principal)
CPT/HCPCS: 36415; 85025

== ENCOUNTER → 2025-03-25 08:35 | Outpatient (REF) | payer OTHER, SELFPAY ==
[2025-03-25 08:45] LABS: Hematocrit 27.1 % (39.0-52.0); Hemoglobin 8.7 g/dL (13.0-18.0); Mean Corp Hgb Conc. 32.1 g/dL (33.0-37.0); Mean Corpuscular Volume 121.5 fL (80.0-94.0); Platelet Count 341 10^3/uL (130-400); Red Cell Dist. Width 28.4 % (11.5-14.5)
== END ==
LOC: OIDL 08:35
PROVIDERS: ATTENDING PHYSICIAN Internal Medicine Hematology & Oncology; FAMILY PHYSICIAN Family Medicine
DX: D46.B Refractory cytopenia with multilineage dysplasia and ring sideroblasts (principal)
CPT/HCPCS: 36415; 85025